=== PATIENT | female | born 1970 | race Caucasian/White ===

== ENCOUNTER → 2016-11-05 | Outpatient (CLI) | payer BC ==
--- NOTE | 2016-11-05 15:09 | DIAGNOSTIC IMAGING REPORT ---
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 TECHNIQUE: Multisequence, multiplanar MR imaging of the cervical spine was performed without the use of intravenous contrast with flexion and extension positioning. IV contrast: None. COMPARISON: None. FINDINGS: Localizer images: Unremarkable. Initial neutral positioning demonstrates normal cervical lordosis. Vertebral bodies maintain normal height, alignment, bone marrow signal intensity. Intervertebral disc spaces preserved. No significant neural foraminal or spinal canal stenosis. Cervical spinal cord maintains normal morphology and signal intensity. No evidence of a syrinx. No tonsillar ectopia. Craniocervical junction normal. Paraspinal soft tissues normal. The upper thoracic spine is also normal in appearance. Dedicated flow imaging demonstrates expected free movement of CSF along the ventral and dorsal aspect of the cervical spinal cord. On flexion, straightening of cervical lordosis is noted without evidence of subluxation or cervical spinal cord impingement. On flow imaging, again, no obstruction to CSF flow is visualized. On extension, expected exaggerated cervical lordosis. No subluxation. Expected appearance of the cervical spinal cord with mild deformation at the level of C4-5 and C5-6, likely within the range of normal. On flow imaging, relative decreased flow is noted along the ventral and dorsal aspect at these levels. IMPRESSION: 1. No evidence of tonsillar ectopia. 2. Morphologically normal cervical spine. 3. On extension imaging, relative decreased flow at the C4-5 and C5-6 levels may be within the range of normal with expected mild deformation of the cord. Normal CSF flow on neutral and flexion positioning. 4. No subluxation with flexion or extension. Electronically signed by: Stas Barroso M.D. 11/05/2016 3:07 PM Dictated Date/Time: 11/05/2016 3:00 PM
== END | disposition home or self-care (01) ==
LOC: C.MRIBC 13:16
PROVIDERS: ATTEND Neurological Surgery
DX: Q04.8 Other specified congenital malformations of brain (principal)